=== PATIENT | female | born 1995 | race African-American/Black ===

== ENCOUNTER 2016-09-01 22:05 | Emergency (ER) | payer BC, MEDICAID ==
[~2016-09-01] VITALS: Ht 180.3 cm; Wt 85.7 kg
[2016-09-01 22:43] VITALS: BP 110/66
[2016-09-01 22:55] LABS: APPEARANCE,URINE CLEAR; KETONES,URINE NEGATIVE (NEGATIVE); LEUKOCYTE ESTERASE ,URINE 3+ (NEGATIVE); NITRITE,URINE NEGATIVE (NEGATIVE); PH,URINE 7 (4.5-8.0); PROTEIN,URINE NEGATIVE (NEGATIVE); UROBILINOGEN,URINE NORMAL MG/DL (0.0-1.0)
[2016-09-01 22:59] LABS: BACTERIA,URINE FEW /HPF; SQUAMOUS EPITHELIAL CELL,UR FEW /LPF (NONE/OCC)
[2016-09-02] MEDS ORDERED: metroNIDAZOLE 500mg tab ORAL ONE (00:15)
[2016-09-02] MEDS ORDERED: ZOFRAN ODT4 MG ORAL (00:22)
[2016-09-02] MEDS ORDERED: METRONIDAZOLE500 MG ORAL (00:22)
[2016-09-02 00:30] VITALS: BP 112/63
[2016-09-02 00:33] VITALS: BP 112/63
--- NOTE | 2016-09-04 01:16 | Emergency Room Report ---
History of Present Illness General Chief Complaint: Vaginal Source: Patient Present Illness HPI Patient with discharge and itching. States thick and white. No fever. Tried to take antibiotics after termination, vomit and stopped antibiotics (BID). Had termination 2 weeks ago - LNMP = June. No fever, dysuria, NVD, rashes. No URI, HUITRON, abdominal pain. Unsure if partner circumcised. Allergies: Coded Allergies: No Known Allergies (Unverified , 09/01/16) Patient History Past Medical History: see triage record Social History: Denies: smoking Social History Narrative in relationship Last Menstrual Period: 07/11/16 Now: No - 2 weeks ago : 2 Para: 0 Reviewed Nursing Documentation: PMH: Agreed, PSxH: Agreed Nursing Documentation-PMH Past Medical History: No Stated History Review of Systems All Other Systems: negative except mentioned in HPI Physical Exam Vital Signs Date Time Temp Pulse Resp B/P Pulse Ox O2 Delivery O2 Flow Rate FiO2 09/01/16 22:27 98.1 86 16 110/66 98 Room Air Sp02 EP Interpretation: reviewed, normal General Appearance: well appearing, no apparent distress, GCS 15, non-toxic Head: normocephalic, atraumatic Eyes: bilateral eye PERRL, bilateral eye normal inspection ENT: hearing grossly normal, normal voice, moist mucus membranes Neck: full range of motion, supple Respiratory: no respiratory distress, speaking full sentences Gastrointestinal: normal inspection, normal bowel sounds, non tender, soft, no mass, non-distended, no guarding Genitourinary: adnexa normal, bladder normal, cervix normal, ext genitalia/vag normal, os closed, uterus normal, other - escobar/clear d/c, no CMT Musculoskeletal: no calf tenderness Neurologic: alert, normal gait, grossly normal Psychiatric: mood/affect normal Skin: no rash Medical Decision Making Diagnostic Impression: Primary Impression: Trichomonal infection Additional Impression: S/P recent termination ER Course Patient with vaginal d/c. Ddx: yeast, vaginosis, UTi amongst others. Recent termination. Positive HCG most likely due to recent termination. Uterus small and against current . Trichomonas needs treatment. Patient stable for outpatient observation and treatment. Labs Test 09/01/16 22:30 Urine Color Yellow Urine Appearance Clear Urine pH 7 (4.5-8.0) Urine Specific [place] 1.010 (1.005-1.035) Urine Protein Negative (NEGATIVE) Urine Glucose (UA) Negative (NEGATIVE) Urine Ketones Negative (NEGATIVE) Urine Occult Blood 4+ (NEGATIVE) Urine Nitrite Negative (NEGATIVE) Urine Bilirubin Negative (NEGATIVE) Urine Urobilinogen Normal MG/DL (0.0-1.0) Urine Leukocyte Esterase 3+ (NEGATIVE) Urine RBC 5-10 /HPF (0 - 2) Urine WBC 2-4 /HPF (0 - 2) Urine Squamous Epithelial Cells Few /LPF (NONE/OCC) Urine Bacteria Few /HPF (NONE) Urine HCG, Qualitative Positive Chlamydia trachomatis RNA Negative (Negative) Neisseria gonorrhoeae RNA Negative (Negative) Last Vital Signs Date Time Temp Pulse Resp B/P Pulse Ox O2 Delivery O2 Flow Rate FiO2 09/02/16 00:33 98.1 74 15 112/63 99 Room Air Status: improved Disposition: HOME, SELF-CARE Condition: Improved Scripts Ondansetron Odt* (ZOFRAN ODT*) 4 Mg Tab.rapdis 4 MG ORAL Q8H Y for Nausea & Vomiting, #4 TAB 0 Refills Prov: Kyler Mcconnell M.D. 09/02/16 Metronidazole* (FLAGYL*) 500 Mg Tablet 500 MG ORAL EVERY 8 HOURS, #21 TAB Prov: Kyler Mcconnell M.D. 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 Kyler Mcconnell M.D. Sep 04, 2016 01:16
== END 2016-09-02 00:34 | disposition home or self-care (01) ==
LOC: EMR 22:45
DX: A59.01 Trichomonal vulvovaginitis (principal)
CPT/HCPCS: 81003; 81025; 87210; 87491; 87590; 99282